=== PATIENT | female | born 1970 | race Caucasian/White ===

== ENCOUNTER 2019-09-01 17:26 | Emergency (ER) | payer OTHER ==
--- NOTE | 2019-09-01 17:43 | EDM.PDOC ---
ED HPI GENERAL MEDICAL PROBLEM - General Chief Complaint: Respiratory Problem Stated Complaint: COLD Time Seen by Provider: 09/01/19 17:43 History Limitations: Reports: No Limitations - History of Present Illness INITIAL COMMENTS - FREE TEXT/NARRATIVE: HISTORY AND PHYSICAL: History of present illness: Patient is a 48-year-old female history of CHF presents to the ED with complaint of possible sinus infection. She states it started with pressure in her forehead and has progressed to a cough and wheezing. She denies fevers, chills, nausea, vomiting, abdominal pain, diarrhea, chest pain, shortness of breath or increased lower extremity edema. Review of systems: As per history of present illness and below otherwise all systems reviewed and negative. Past medical history: As per history of present illness and as reviewed below otherwise noncontributory. Surgical history: As per history of present illness and as reviewed below otherwise noncontributory. Social history: No reported history of drug or alcohol abuse. Family history: As per history of present illness and as reviewed below otherwise noncontributory. Physical exam: General: Patient sitting comfortably in no acute distress and nontoxic appearing HEENT: Atraumatic, normocephalic, pupils reactive, negative for conjunctival pallor or scleral icterus, mucous membranes moist, throat clear, neck supple, nontender, trachea midline. No meningeal signs. Lungs: Rhonchi throughout all lung moy, chest nontender. Heart: S1S2, regular, negative for clicks, rubs, or overt murmur. Abdomen: Soft, nondistended, nontender. Negative for masses or hepatosplenomegaly. Negative for costovertebral tenderness. No rigidity, rebound , guarding. Pelvis: Stable nontender. Genitourinary: Deferred. Rectal: Deferred. Extremities: 1+ pitting edema bilaterally. Atraumatic, negative for cords or calf pain. Neurovascular unremarkable. Neuro: Awake, alert, oriented. Cranial nerves II through XII unremarkable. Cerebellum unremarkable. Motor and sensory unremarkable throughout. Exam nonfocal. Notes: Diagnostics: Influenza, chest x-ray Therapeutics: none Prescriptions: Doxycycline Impression: URI Plan: Take antibiotic as instructed Follow up with primary care provider Return to ED as needed as discussed Definitive disposition and diagnosis as appropriate pending reevaluation and review of above. sinus Pain Score (Numeric/FACES): 4 - Related Data Allergies Allergy/AdvReac Type Severity Reaction Status Date / Time amoxicillin [From Augmentin] Allergy Tremors Verified 09/01/19 17:46 clarithromycin [From Biaxin] Allergy Tremors Verified 09/01/19 17:46 clavulanic acid Allergy Tremors Verified 09/01/19 17:46 [From Augmentin] sulfamethoxazole Allergy Tremors Verified 09/01/19 17:46 [From Bactrim] trimethoprim [From Bactrim] Allergy Tremors Verified 09/01/19 17:46 Home Meds: Home Meds Furosemide [Lasix] 40 mg PO DAILY 09/01/19 [History] Levothyroxine Sodium [Euthyrox] 25 mcg PO DAILY 09/01/19 [History] Potassium Chloride 10 mg PO BID 09/01/19 [History] Sertraline [Zoloft] 50 mg PO DAILY 09/01/19 [History] Spironolactone [Aldactone] 25 mg PO DAILY 09/01/19 [History] ED ROS GENERAL - Review of Systems Review Of Systems: Comprehensive ROS is negative, except as noted in HPI. ED EXAM, GENERAL - Physical Exam Exam: See Below (see dictation) Course - Vital Signs Last Recorded V/S: Last Vital Signs Temp 98 F 09/01/19 17:47 Pulse 99 09/01/19 17:47 Resp 16 09/01/19 17:47 BP 114/67 09/01/19 17:47 Pulse Ox 95 09/01/19 17:47 - Orders/Labs/Meds Orders: Active Orders 24 hr Category Date Time Status Isolation [COMM] Routine Oth 09/01/19 17:40 Active Departure - Departure Time of Disposition: 18:36 Disposition: Home, Self-Care 01 Condition: Good Clinical Impression: URI (upper respiratory infection) - Discharge Information Referrals: Swati Wagner NP [Primary Care Provider] - Forms: ED Department Discharge Additional Instructions: The following information is given to patients seen in the emergency department who are being discharged to home. This information is to outline your options for follow-up care. We provide all patients seen in our emergency department with a follow-up referral. The need for follow-up, as well as the timing and circumstances, are variable depending upon the specifics of your emergency department visit. If you don't have a primary care physician on staff, we will provide you with a referral. We always advise you to contact your personal physician following an emergency department visit to inform them of the circumstance of the visit and for follow-up with them and/or the need for any referrals to a consulting specialist. The emergency department will also refer you to a specialist when appropriate. This referral assures that you have the opportunity for follow-up care with a specialist. All of these measure are taken in an effort to provide you with optimal care, which includes your follow-up. Under all circumstances we always encourage you to contact your private physician who remains a resource for coordinating your care. When calling for follow-up care, please make the office aware that this follow-up is from your recent emergency room visit. If for any reason you are refused follow-up, please contact the [facility] at and asked to speak to the emergency department charge nurse. [facility] [address] [place] [id number] [address] [id number] Take antibiotic as instructed Follow up with primary care provider Return to ED as needed as discussed Sepsis Event Note - Focused Exam Vital Signs: Vital Signs Temp Pulse Resp BP Pulse Ox 09/01/19 17:47 98 F 99 16 114/67 95 Date Exam was Performed: 09/01/19 Time Exam was Performed: 18:37 - My Orders Last 24 Hours: My Active Orders 09/01/19 17:40 Isolation [COMM] Routine - Assessment/Plan Last 24 Hours: My Active Orders 09/01/19 17:40 Isolation [COMM] Routine
--- NOTE | 2019-09-01 18:27 | CR ---
Chest: 2 views of the chest were obtained. Comparison: No prior chest x-ray is available. Heart is enlarged. Small bilateral pleural effusions are noted. Pulmonary vessels are mildly congested. Impression: 1. Findings compatible with early CHF. Diagnostic code #3 This report was dictated in MDT
== END 2019-09-01 18:50 | disposition home or self-care (01) ==
LOC: MW.ED 17:26
DX: J06.9 Acute upper respiratory infection, unspecified (principal); I50.9 Heart failure, unspecified; Z88.2 Allergy status to sulfonamides; Z88.0 Allergy status to penicillin; Z79.899 Other long term (current) drug therapy
CPT/HCPCS: 71046; 71046-26; 87804; 99282; 99284-25

== ENCOUNTER 2020-03-12 16:30 | Emergency (ER) | payer OTHER ==
[2020-03-12] MEDS ORDERED: Sodium Chloride 0.9% 10 ML Syringe FLUSH PRN (16:56)
[2020-03-12] MEDS ORDERED: Sodium Chloride 0.9% 2.5 ML Syringe FLUSH PRN (16:56)
--- NOTE | 2020-03-12 17:57 | CR ---
Chest: Portable view of the chest is obtained. Comparison: Soft tissue density is seen overlying the heart most likely relating the patient's abdomen. Heart is likely somewhat enlarged. Upper mediastinum is normal. Lungs show no acute parenchymal change. Impression: 1. Obscuration of the heart most likely from the abdomen. 2. Nothing acute is otherwise seen. Diagnostic code #2 This report was dictated in MDT
[2020-03-12 17:58] LABS: CARBON DIOXIDE,CO2 30.9 mmol/L (21.0-32.0); POTASSIUM,K 2.8 mmol/L (3.5-5.1)
--- NOTE | 2020-03-12 18:11 | EDM.PDOC ---
ED HPI GENERAL MEDICAL PROBLEM - General Chief Complaint: General Stated Complaint: FLUID LEAKIN Time Seen by Provider: 03/12/20 16:43 - History of Present Illness INITIAL COMMENTS - FREE TEXT/NARRATIVE: History of present illness: Patient presents with increased swelling she has chronic liver failure without a primary diagnosis a nurse practitioner is been managing her and had referred her to a companion today but somehow she missed her appointment due to COVID screening at the front door and they refused to see her because she was late. Therefore the patient decided to check into the emergency department. There is nothing new about this apparently she is just had increased swelling is becoming more uncomfortable vital signs are stable she denies any fever chills cough no nausea or vomiting no abdominal pain no chest pain. Nothing makes it better or worse Review of systems: As per history of present illness and below otherwise all systems reviewed and negative. Past medical history: As per history of present illness and as reviewed below otherwise noncontributory. Surgical history: As per history of present illness and as reviewed below otherwise noncontributory. Social history: No reported history of drug or alcohol abuse. Family history: As per history of present illness and as reviewed below otherwise noncontributory. Physical exam: HEENT: Atraumatic, normocephalic, pupils reactive, negative for conjunctival pallor or scleral icterus, mucous membranes moist, throat clear, neck supple, nontender, trachea midline. Lungs: Clear to auscultation, breath sounds equal bilaterally, chest nontender. Heart: S1S2, regular, negative for clicks, rubs, or JVD. Abdomen: Soft, massively distended abdomen with ascites., nontender. Negative for masses or hepatosplenomegaly. Negative for costovertebral tenderness. Pelvis: Stable nontender. Genitourinary: Deferred. Rectal: Deferred. Extremities: Atraumatic, negative for cords or calf pain. Neurovascular unremarkable. 4+ edema. Neuro: Awake, alert, oriented. Cranial nerves II through XII unremarkable. Cerebellum unremarkable. Motor and sensory unremarkable throughout. Exam nonfocal. Diagnostics: [] Therapeutics: [] Impression: Massive edema and ascites from hepatic failure [] Plan: We will recheck labs vital signs are stable we will reassess the patient review her old records. [] Definitive disposition and diagnosis as appropriate pending reevaluation and review of above. - Related Data Allergies Allergy/AdvReac Type Severity Reaction Status Date / Time amoxicillin [From Augmentin] Allergy Tremors Verified 03/12/20 16:41 clarithromycin [From Biaxin] Allergy Tremors Verified 03/12/20 16:41 clavulanic acid Allergy Tremors Verified 03/12/20 16:41 [From Augmentin] sulfamethoxazole Allergy Tremors Verified 03/12/20 16:41 [From Bactrim] trimethoprim [From Bactrim] Allergy Tremors Verified 03/12/20 16:41 Home Meds: Home Meds Furosemide [Lasix] 80 mg PO DAILY 09/01/19 [History] Levothyroxine Sodium [Euthyrox] 25 mcg PO DAILY 09/01/19 [History] Sertraline [Zoloft] 50 mg PO DAILY 09/01/19 [History] Spironolactone [Aldactone] 25 mg PO DAILY 09/01/19 [History] Apixaban [Eliquis] 5 mg PO BID 03/12/20 [History] Liothyronine [Cytomel] 25 mcg PO DAILY 03/12/20 [History] Metoprolol Tartrate 50 mg PO DAILY 03/12/20 [History] Past Medical History HEENT History: Reports: Allergic Rhinitis Cardiovascular History: Reports: Heart Failure, Other (See Below) Other Cardiovascular History: A-flutter, cardiac ablasion [employer]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: Endometrial Ablation, Psychiatric History: Reports: Anxiety Endocrine/Metabolic History: Reports: Hypothyroidism Hematologic History: Reports: Anemia Dermatologic History: Reports: Venous Stasis Dermatitis - Infectious Disease History Infectious Disease History: Reports: Chicken Pox - Past Surgical History Cardiovascular Surgical History: Reports: Cardiac Ablation Social & Family History - Family History Family Medical History: Noncontributory - Caffeine Use Caffeine Use: Reports: None - Recreational Drug Use Recreational Drug Use: No ED ROS GENERAL - Review of Systems Review Of Systems: See Below ED EXAM, GENERAL - Physical Exam Exam: See Below Course - Vital Signs Text/Narrative:: I reviewed old records from the hospital patient has chronic liver failure with chronic ascites and all of her issues have been chronically going on we had a long discussion about the need for her to see her specialists and the need for eventual referral to a assistant corporate controller and to potentially a radiologist who can do a paracentesis. She understands that she needs to follow-up with her primary care doctor and the specialist appointments. She has no underlying diagnosis for the cause of her liver failure at this point she is stable vital signs are okay there is no respiratory distress she is going to be discharged home to follow-up with her regular doctors her potassium was repleted in the ED. Last Recorded V/S: Last Vital Signs Temp 36.7 C 03/12/20 16:43 Pulse 79 03/12/20 16:43 Resp 20 03/12/20 16:43 BP 108/71 03/12/20 16:43 Pulse Ox 99 03/12/20 16:43 - Orders/Labs/Meds Orders: Active Orders 24 hr Category Date Time Status Sodium Chloride 0.9% [Saline Flush] Med 03/12/20 16:56 Active 10 ml FLUSH ASDIRECTED PRN Sodium Chloride 0.9% [Saline Flush] Med 03/12/20 16:56 Active 2.5 ml FLUSH ASDIRECTED PRN Saline Lock Insert [OM.PC] Stat Oth 03/12/20 16:56 Ordered Medication Orders Sodium Chloride (Saline Flush) 10 ml FLUSH ASDIRECTED PRN PRN Reason: Keep Vein Open Last Admin: 03/12/20 17:11 Dose: 10 ml Documented by: TIA Sodium Chloride (Saline Flush) 2.5 ml FLUSH ASDIRECTED PRN PRN Reason: Keep Vein Open Last Admin: 03/12/20 17:11 Dose: 2.5 ml Documented by: TIA Labs: Laboratory Tests 03/12/20 03/12/20 03/12/20 Range/Units 17:09 17:09 17:09 WBC 4.90 (4.0-11.0) K/uL RBC 3.66 L (4.30-5.90) M/uL Hgb 9.8 L (12.0-16.0) g/dL Hct 31.3 L (36.0-46.0) % MCV 85.5 (80.0-98.0) fL MCH 26.8 L (27.0-32.0) pg MCHC 31.3 (31.0-37.0) g/dL RDW Std Deviation 59.6 (28.0-62.0) fl RDW Coeff of Deon 19 H (11.0-15.0) % Plt Count 216 (150-400) K/uL MPV 10.90 (7.40-12.00) fL Neut % (Auto) 72.9 (48.0-80.0) % Lymph % (Auto) 12.2 L (16.0-40.0) % Mobile % (Auto) 11.8 (0.0-15.0) % Eos % (Auto) 2.9 (0.0-7.0) % Baso % (Auto) 0.2 (0.0-1.5) % Neut # (Auto) 3.6 (1.4-5.7) K/uL Lymph # (Auto) 0.6 (0.6-2.4) K/uL Mobile # (Auto) 0.6 (0.0-0.8) K/uL Eos # (Auto) 0.1 (0.0-0.7) K/uL Baso # (Auto) 0.0 (0.0-0.1) K/uL Nucleated RBC % 0.0 /100WBC Nucleated RBCs # 0 K/uL INR 1.28 APTT 30.9 (18.6-31.3) SEC Sodium 142 (136-145) mmol/L Potassium 2.8 L (3.5-5.1) mmol/L Chloride 101 (98-107) mmol/L Carbon Dioxide 30.9 (21.0-32.0) mmol/L BUN 18 (7.0-18.0) mg/dL Creatinine 1.2 H (0.6-1.0) mg/dL Est Cr Clr Drug Dosing 52.15 mL/min Estimated GFR (MDRD) 48.2 ml/min Glucose 94 (74-106) mg/dL Calcium 8.8 (8.5-10.1) mg/dL Total Bilirubin 1.1 H (0.2-1.0) mg/dL AST 20 (15-37) IU/L ALT 12 L (14-63) IU/L Alkaline Phosphatase 220 H (46-116) U/L Total Protein 6.6 (6.4-8.2) g/dL Albumin 3.3 L (3.4-5.0) g/dL Globulin 3.3 (2.6-4.0) g/dL Albumin/Globulin Ratio 1.0 (0.9-1.6) Lipase 126 (73-393) U/L TSH 3rd Generation 5.75 H (0.36-3.74) uIU/mL Meds: Medications Generic Name Dose Route Start Last Admin Trade Name Freq PRN Reason Stop Dose Admin Sodium Chloride 10 ml 03/12/20 16:56 03/12/20 17:11 Saline Flush FLUSH 10 ml ASDIRECTED PRN Administration Keep Vein Open Sodium Chloride 2.5 ml 03/12/20 16:56 03/12/20 17:11 Saline Flush FLUSH 2.5 ml ASDIRECTED PRN Administration Keep Vein Open Discontinued Medications Generic Name Dose Route Start Last Admin Trade Name Freq PRN Reason Stop Dose Admin Potassium Chloride 20 meq 03/12/20 18:35 Potassium Chloride Solution PO 03/12/20 18:36 ONETIME ONE Potassium Chloride 40 meq 03/12/20 18:37 Potassium Chloride PO 03/12/20 18:38 ONETIME ONE Departure - Departure Time of Disposition: 18:42 Disposition: Home, Self-Care 01 Condition: Good Clinical Impression: Anasarca, Hepatic failure - Discharge Information *PRESCRIPTION DRUG MONITORING PROGRAM REVIEWED*: Not Applicable *COPY OF PRESCRIPTION DRUG MONITORING REPORT IN PATIENT LEVAR: Not Applicable Instructions: Liver Failure Referrals: Swati Wagner NP [Primary Care Provider] - Forms: ED Department Discharge Additional Instructions: The following information is given to patients seen in the emergency department who are being discharged to home. This information is to outline your options for follow-up care. We provide all patients seen in our emergency department with a follow-up referral. The need for follow-up, as well as the timing and circumstances, are variable depending upon the specifics of your emergency department visit. If you don't have a primary care physician on staff, we will provide you with a referral. We always advise you to contact your personal physician following an emergency department visit to inform them of the circumstance of the visit and for follow-up with them and/or the need for any referrals to a consulting specialist. The emergency department will also refer you to a specialist when appropriate. This referral assures that you have the opportunity for follow-up care with a specialist. All of these measure are taken in an effort to provide you with optimal care, which includes your follow-up. Under all circumstances we always encourage you to contact your private physician who remains a resource for coordinating your care. When calling for follow-up care, please make the office aware that this follow-up is from your recent emergency room visit. If for any reason you are refused follow-up, please contact the [facility] at and asked to speak to the emergency department charge nurse. Sepsis Event Note (ED) - Evaluation Sepsis Screening Result: No Definite Risk - Focused Exam Vital Signs: Vital Signs Temp Pulse Resp BP Pulse Ox 03/12/20 16:43 36.7 C 79 20 108/71 99 - My Orders Last 24 Hours: My Active Orders 03/12/20 16:56 Sodium Chloride 0.9% [Saline Flush] 10 ml FLUSH ASDIRECTED PRN Sodium Chloride 0.9% [Saline Flush] 2.5 ml FLUSH ASDIRECTED PRN Saline Lock Insert [OM.PC] Stat - Assessment/Plan Last 24 Hours: My Active Orders 03/12/20 16:56 Sodium Chloride 0.9% [Saline Flush] 10 ml FLUSH ASDIRECTED PRN Sodium Chloride 0.9% [Saline Flush] 2.5 ml FLUSH ASDIRECTED PRN Saline Lock Insert [OM.PC] Stat
[2020-03-12] MEDS ORDERED: Potassium Chloride 10% 20 MEQ/15 ML Soln 15 ML UD Cup PO ONE (18:35)
[2020-03-12] MEDS ORDERED: Potassium Chloride 10% 20 MEQ/15 ML Soln 30 ML UD Cup PO ONE (18:37)
== END 2020-03-12 19:05 | disposition home or self-care (01) ==
LOC: MW.ED 16:30
DX: K72.90 Hepatic failure, unspecified without coma (principal); R18.8 Other ascites; I50.9 Heart failure, unspecified; F41.9 Anxiety disorder, unspecified; E03.9 Hypothyroidism, unspecified; Z79.899 Other long term (current) drug therapy; Z79.01 Long term (current) use of anticoagulants; Z88.1 Allergy status to other antibiotic agents; Z88.2 Allergy status to sulfonamides
CPT/HCPCS: 36415; 71045; 80053; 83690; 84443; 85025; 85610; 85730; 99284; A9270; 99283